=== PATIENT | male | born 1985 | race Caucasian/White ===

== ENCOUNTER 2022-09-28 09:29 | Outpatient (CLI) | payer OTHER, SELFPAY | END 2022-09-28 09:30 | disposition home or self-care (01) | LOC: ANHAUDIO 09:30 | PROVIDERS: Visit Provider Otolaryngology | DX: H65.93 Unspecified nonsuppurative otitis media, bilateral (principal); H93.13 Tinnitus, bilateral; H91.93 Unspecified hearing loss, bilateral | CPT/HCPCS: 92557; 92567 ==

== ENCOUNTER 2022-10-20 00:22 | Day surgery (SDC) | payer OTHER, SELFPAY ==
[2022-10-15 14:21] VITALS: BMI 36.9
--- NOTE | 2022-10-15 14:27 | PC.NURSE ---
Report to the Outpatient Waiting Room, entrance under the green pavilion located off [facility], at time 1045 on date 10/20/22. Planned Procedure Time: 1245. Time changes happen often and if your time is changed the preop area will call you the afternoon before. - You and your visitor will be asked to self-screen and do not enter if you have any COVID symptoms. - A mask is optional within the hospital at this time. Patients may have clear liquids (water, carbonated beverages, clear teas, apple juice) until 3 hours prior to surgery with a maximum of 20 ounces. - No food from midnight until time of surgery Take the following medications with a SIP of water the morning of surgery: N/A DO NOT STOP ANY OF YOUR OTHER PRESCRIPTION MEDICATIONS PRIOR TO SURGERY?EXCEPT THE FOLLOWING Medications to discontinue per physician: N/A Date to take last dose: N/A Please no make-up, nail latvian, hairspray, perfume, deodorant, or body powder the day of surgery. No jewelry (including any body piercings) or valuables the day of surgery, leave them at home. Please take a shower or bath the night before, or the morning of, surgery with an antibacterial soap. Wear comfortable, loose fitting clothing. - Jewelry must be removed prior to entering the operating room. Rings and piercings that are not removed may be cut off. - The hospital will not accept responsibility for valuables. - Please leave all valuables, including medications, at home the day of surgery. If you are going home after surgery, a licensed [employer] driver must drive you home. - NO public transportation without another adult if you receive anesthesia. - We recommend that an adult stay with you for 24 hours following discharge. - We also recommend that you do not drive, make important decision, drink alcoholic beverages, or take any drugs that were not prescribed by your health care provider for at least 24 hours after your discharge time. Follow any additional instructions given to you from your surgeon. If you or anyone in your household have experienced Covid symptoms in the past week, please notify your surgeon or the nurse liaison at the phone number below for possible testing. Telephone instructions given to PT - MARYLU WHEELER and asked if any additional questions and then verbalized understanding. Patient advised to call surgeon office or pre surgery nurse liaison [phone] if any additional questions.
--- NOTE | 2022-10-19 18:37 | PM.IMHP ---
H&P: HPI History of Present Illness Date/Time: 10/19/22 18:37 Chief Complaint: Recurrent otitis media chronic otitis media Narrative: planned procedure Review of Systems Review of Systems: All systems reviewed & are unremarkable except as noted in HPI and below [facility] Social History Social History Smoking packs per day: 1 Smoking cigarettes per day: 20.0 Years smoked: 19 Smoking pack-years: 19.00 Smoking status: Former smoker Tobacco type: cigarettes and e-cigarettes/vaping Smokeless tobacco user: chewing tobacco Smoking end date: 05/24/18 Alcohol intake: never Substance use: never Substance use type: does not use Lack of Transportation: No Lack of Food: Never True Current Housing: I Have Housing Concerned About Future Housing: No Difficulty Paying Gas/Electric Bills: No Difficulty Paying for Meds: No Currently Unemployed: No Education: High School Diploma/GED Difficulty w/ Childcare or Family Care: No Living arrangements: with family Occupation/Education: occupation Gender identity (if verbalized by the patient): Male Spiritual care concerns: No Meds Home Medications and Allergies Home Medications Medication Instructions Recorded Confirmed Type No Home Medications 10/15/22 10/15/22 History Allergies Allergy/AdvReac Type Severity Reaction Status Date / Time No Known Allergies Allergy Verified 10/15/22 14:20 Exam Narrative: fluid middle ears Assessment and Plan Assessment and plan (1) Conductive hearing loss: Code(s): H90.2 - Conductive hearing loss, unspecified Status: Acute Assessment and Plan: For the ears OR bilateral myringotomy with t tube insertion.? Risks were discussed including bleeding infection cholesteatoma facial nerve paralysis persistent perforation total deafness infection caused by the tubes.? Patient voiced understanding and agreed. (2) Chronic otitis media with effusion: Code(s): H65.499 - Other chronic nonsuppurative otitis media, unspecified ear Status: Acute
[2022-10-20] VITALS (7 sets, daily range): BP systolic 108–115; BP diastolic 66–79; PULSE 55–70; RESP 12–16; TEMP 36.1–36.3; O2SAT 95–98
--- NOTE | 2022-10-20 07:19 | WPDHPUPDATE1 ---
History and Physical Update Update Date/Time: 10/20/22 07:19 History and Physical has been reviewed, including an updated exam of the patient. There are NO changes in the patient's condition. Risks, benefits, and alternatives have been discussed and questions answered. Patient agrees to proceed with procedure.
--- NOTE | 2022-10-20 10:50 | P.PNAN_ITS ---
Anes - Initial Pre Proc Eval Procedure: Operation Date: 10/20/22 12:45 Proposed Procedures p Bilateral Myringotomy,Insertion Of T-Tubes - Talib Rendon MD Date/Time: 10/20/22 10:50 Surgeon: Talib Rendon MD Pre Op Diagnosis: Darrell Chr Otitis Media Patient Data Age: 37 Gender: M Height: 1.75 m Weight: 110.4 kg Last Vital Signs Temp 36.1 C L 10/20/22 10:17 Pulse 70 10/20/22 10:17 Resp 14 10/20/22 10:17 BP 115/76 10/20/22 10:17 Pulse Ox 98 10/20/22 10:17 O2 Del Method Room Air 10/20/22 10:17 Allergies Allergy/AdvReac Type Severity Reaction Status Date / Time No Known Allergies Allergy Verified 10/20/22 10:20 Home Medications Medication Instructions Recorded Confirmed Type No Home Medications 10/15/22 10/15/22 History Patient hx anesthesia problems: none Family hx anesthesia problems: none Results Review: All pre-operative results and documents have been reviewed as part of the pre- operative evaluation. [facility], [facility] Social History Social History Smoking packs per day: 1 Smoking cigarettes per day: 20.0 Years smoked: 19 Smoking pack-years: 19.00 Smoking status: Former smoker Tobacco type: cigarettes and e-cigarettes/vaping Smokeless tobacco user: chewing tobacco Smoking end date: 05/24/18 Alcohol intake: never Substance use: never Substance use type: does not use Lack of Transportation: No Lack of Food: Never True Current Housing: I Have Housing Concerned About Future Housing: No Difficulty Paying Gas/Electric Bills: No Difficulty Paying for Meds: No Currently Unemployed: No Education: High School Diploma/GED Difficulty w/ Childcare or Family Care: No Living arrangements: with family Occupation/Education: occupation Gender identity (if verbalized by the patient): Male Spiritual care concerns: No Anes - Eval Final PreProcedure Day of Procedure 10/20/22 10:50 Patient weight: obese Heart: regular rate and rhythm Lungs: decreased breath sounds Airway: Mallampati scale class II Neurological: alert and oriented Last oral intake: >/= 8 hours ASA classification: III Emergent: no Anesthetic plan: proceed Anesthesia type and monitoring: general ETT and standard monitoring Results Review: All pre-operative results and documents have been reviewed as part of the pre- operative evaluation. Informed Consent: The patient's anesthetic plan and its attendant risks and benefits were discussed with the patient/family/POA. Questions were solicited and answers provided to the satisfaction of the patient/family/POA.
[2022-10-20] MEDS: CIPROFLOXACIN HCL 0.3% OP SOLN 2.5 ML BTL 4 DROP EACH EAR (11:33)
[2022-10-20] MEDS: LACTATED RINGERS 1,000 ML 30 ML IV CONT (11:41)
--- NOTE | 2022-10-20 11:46 | W.PM.PROC2 ---
Procedure Note - Detailed Date of Procedure 10/20/22 Pre-op Diagnosis Darrell Chr Otitis Media Post-op Diagnosis Same Procedure Performed Bilateral myringotomy with T-tube insertion Surgeon Talib Rendon MD Anesthesia General ( LMA) Indications see above Findings right-sided severely retracted drum straw-colored fluid left-sided aerated retracted drum Description of Procedure patient identified consent verified preop. Patient brought operating room. Time-out performed. General anesthesia induced LMA secured. Patient prepped draped position. Procedure confirmed. Second time-out performed. Right-sided viewed cerumen removed myringotomy made copious amounts of fluid T-Tube placed successfully no bleeding exact same procedure performed on the left side only difference was no fluid in the middle ear. Patient tolerated the procedure well no complications no blood loss. I performed all dictated portions of procedure patient taken to PACU. Drains No Packing No Pathology None sent Complications No immediate complications Condition Stable Disposition PACU [facility] Billing Surgery - Charge Forward: Surgery Billing
== END 2022-10-20 12:58 | disposition home or self-care (01) ==
PROVIDERS: Visit Provider Otolaryngology
PROC: (CPT 69436; principal; 2022-10-20 12:45)
DX: H65.499 Other chronic nonsuppurative otitis media, unspecified ear (principal); H90.2 Conductive hearing loss, unspecified; Z87.891 Personal history of nicotine dependence; E66.9 Obesity, unspecified; Z68.35 Body mass index [BMI] 35.0-35.9, adult
CPT/HCPCS: 69436; J1100; J2250; J2405; J2704; J3010; J7120